=== PATIENT | female | born 1995 | race Caucasian/White ===

== ENCOUNTER 2019-02-07 10:28 | Inpatient (IN) | payer MEDICAID ==
[~2019-02-07] VITALS: Ht 170.2 cm; Wt 115.5 kg
[2019-02-09 08:55] VITALS: BP 119/76
== END 2019-02-09 14:59 | disposition home or self-care (01) | DRG 540 ==
LOC: LDIP 10:28 → 2NW 16:38
PROVIDERS: ADMIT Obstetrics & Gynecology; ATTEND Obstetrics & Gynecology
PROC: 10D00Z1 Extraction of Products of Conception, Low, Open Approach (ICD-10-PCS; principal; 2019-02-07)
DX: O34.211 Maternal care for low transverse scar from previous cesarean delivery (principal); N73.6 Female pelvic peritoneal adhesions (postinfective); O99.89 Other specified diseases and conditions complicating pregnancy, childbirth and the puerperium; Z37.0 Single live birth; Z3A.40 40 weeks gestation of pregnancy; Z88.8 Allergy status to other drugs, medicaments and biological substances; Z91.040 Latex allergy status
CPT/HCPCS: 36415; 85025; 86850; 86900; G0378; J0690; J1100; J1170; J1885; J2405; J3010; J2370; J2590; J2765; J7120